=== PATIENT | female | born 1975 | race Caucasian/White ===

== ENCOUNTER 2016-07-25 14:39 | Emergency (ER) | payer OTHER, BC ==
[~2016-07-25] VITALS: Ht 154.9 cm; Wt 87.4 kg
[~2016-07-25 14:39] MED LIST: CELEXA40 M1 PO; FLEXERIL PO; NAPROSYN500 MG PO; SILVADENE1 % EX
[2016-07-25] MEDS ORDERED: NAPROSYN500 MG PO (15:50)
[2016-07-25 15:57] VITALS: BP 121/80
[2016-07-25] MEDS ORDERED: TOPAMAX50 MG PO (16:19)
[2016-07-25] MEDS ORDERED: ADDERALL XR20 MG PO (16:20)
[2016-07-25] MEDS ORDERED: ADDERALL20 MG PO (16:21)
[2016-07-25] MEDS ORDERED: MULTI VIT PO (16:23)
[2016-07-25] MEDS ORDERED: MELOXICAM7.5 MG PO (16:24)
== END 2016-07-25 16:12 | disposition home or self-care (01) | DRG 552 ==
LOC: ED 14:39
DX: S16.1XXA Strain of muscle, fascia and tendon at neck level, initial encounter (principal); F32.9 Major depressive disorder, single episode, unspecified; M54.9 Dorsalgia, unspecified; Z98.84 Bariatric surgery status; V49.40XA Driver injured in collision with unspecified motor vehicles in traffic accident, initial encounter